=== PATIENT | male | born 1965 | race Caucasian/White ===

== ENCOUNTER 2020-01-28 13:35 | Emergency (ER) | payer OTHER ==
[~2020-01-28] VITALS: Ht 175.3 cm; Wt 150.0 kg
[2020-01-28 13:35] VITALS: BP 132/70
[2020-01-28] MEDS ORDERED: NEOMY/BACITR/POLYMYXIN OINT PACKET. TP ONE (14:15)
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
[2020-01-28] MEDS ORDERED: ACET-704 PO (14:58)
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
== END 2020-01-28 15:00 | disposition home or self-care (01) ==
LOC: ER 13:35
DX: S61.512A Laceration without foreign body of left wrist, initial encounter (principal); S51.812A Laceration without foreign body of left forearm, initial encounter; S60.222A Contusion of left hand, initial encounter; E11.9 Type 2 diabetes mellitus without complications; E78.00 Pure hypercholesterolemia, unspecified; I10 Essential (primary) hypertension; Z87.442 Personal history of urinary calculi; V89.2XXA Person injured in unspecified motor-vehicle accident, traffic, initial encounter; Y93.I9 Activity, other involving external motion; Y92.481 Parking lot as the place of occurrence of the external cause; Y99.8 Other external cause status
CPT/HCPCS: 73090; 73130; 99284

== ENCOUNTER 2020-02-07 21:19 | Inpatient (IN) | payer OTHER, BC ==
[~2020-02-07] VITALS: Ht 177.8 cm; Wt 157.1 kg
[~2020-02-07 21:19] MED LIST changes: -ALLO300T PO; -AMLO10TA8 PO; -HYDR-2145 PO; -HYDR-2868 PO; -INSU100C SQ; -INSU100I13 SQ; -LOSA100T14 PO; -METF500T16 PO; -METO50TA29 PO; -POTA10TA5 PO; -PRAV40TA2 PO; -SITA100T PO
[2020-02-07] MEDS ORDERED: IV NORMAL SALINE 1,000ML 1,000 ML IV ONE (21:30)
--- NOTE | 2020-02-07 21:56 | PHYS DOC ---
Past History Past Medical History: Diabetes, High Cholesterol, Hypertension, Kidney Stones Past Surgical History: Other Additional Past Surgical Histo: FINGER AMUPTATION OF THE LEFT HAND Smoking: Non-smoker Alcohol Use: Rarely Drug Use: None General Adult EDM: Chief Complaint: CELLULITIS HPI: HPI: 54-year-old male presents at the direction of his primary care physician, Dr. Portillo. Patient has left lower leg cellulitis. He has been treated with doxycycline for a week, but it is not getting better. The patient states that the redness has expanded a bit. If he walks around very much his leg gets quite swollen. He had an ultrasound done earlier today or yesterday that ruled out DVT. He has a history of diabetes. He is basically coming here for admission and IV antibiotics due to failed outpatient therapy. Patient has not had a fever. He has had sepsis due to cellulitis in the past. Review of Systems: Review of Systems: Constitutional: Denies fever or chills Eyes: Denies change in visual acuity HENT: Denies nasal congestion or sore throat Respiratory: Denies cough or shortness of breath Cardiovascular: Denies chest pain or edema GI: Denies abdominal pain, nausea, vomiting, bloody stools or diarrhea : Denies dysuria Musculoskeletal: Denies back pain or joint pain Integument: Cellulitis and hematoma left lower leg Neurologic: Denies headache, focal weakness or sensory changes Endocrine: Denies polyuria or polydipsia Lymphatic: Denies swollen glands Psychiatric: Denies depression or anxiety Heart Score: Risk Factors: Risk Factors: DM, Current or recent (<one month) smoker, HTN, HLP, family history of CAD, obesity. Risk Scores: Score 0 - 3: 2.5% MACE over next 6 weeks - Discharge Home Score 4 - 6: 20.3% MACE over next 6 weeks - Admit for Clinical Observation Score 7 - 10: 72.7% MACE over next 6 weeks - Early Invasive Strategies Current Medications: Current Meds: Current Medications Medications (Trade) Dose Ordered Sig/Vivian Start Time Stop Time Status Last Admin Dose Admin Sodium Chloride 1,000 ml @ 1,000 mls/hr 1X ONCE 02/07/20 21:30 02/07/20 22:29 Allergies: Allergies: Allergies Coded Allergies Type Severity Reaction Last Updated Verified No Known Drug Allergies 01/28/20 No Physical Exam: PE: Constitutional: Well developed, morbidly obese, well nourished, no acute distress, non-toxic appearance. [] HENT: Normocephalic, atraumatic, bilateral external ears normal, oropharynx moist, no oral exudates, nose normal. [] Eyes: PERRLA, EOMI, conjunctiva normal, no discharge. [] Neck: Normal range of motion, no tenderness, supple, no stridor. [] Cardiovascular:Heart rate regular rhythm, no murmur [] Lungs & Thorax: Bilateral breath sounds clear to auscultation [] Abdomen: Bowel sounds normal, soft, no tenderness, no masses, no pulsatile masses. [] Skin: Warm, erythematous area of the left lower leg with a 2 cm superficial hematoma. [] Back: No tenderness, no CVA tenderness. [] Extremities: No tenderness, no cyanosis, no clubbing, ROM intact, no edema. [] Neurologic: Alert and oriented X 3, normal motor function, normal sensory function, no focal deficits noted. [] Psychologic: Affect normal, judgement normal, mood normal. [] Current Patient Data: Vital Signs: Vital Signs Date Time Temp Pulse Resp B/P (MAP) Pulse Ox O2 Delivery O2 Flow Rate FiO2 02/07/20 21:20 98.7 87 20 159/77 (104) 97 Room Air EKG: EKG: [] Radiology/Procedures: Radiology/Procedures: [] Course & Med Decision Making: Course & Med Decision Making Pertinent Labs and Imaging studies reviewed. (See chart for details) The patient's labs are unremarkable except for a lactic acid of 2.9. We have given a liter of normal saline. His leg is consistent with cellulitis. I will start him on vancomycin and admit him to the hospital. I spoke with Dr. Michaels and he has accepted the patient for admission. [] Dragon Disclaimer: Dragon Disclaimer: This electronic medical record was generated, in whole or in part, using a voice recognition dictation system. Departure Departure: Impression: Primary Impression: Cellulitis of left lower leg Disposition: ADMITTED INPATIENT Admitting Physician: Manfred Michaels Condition: STABLE Referrals: OMARI PORTILLO MD (PCP) Justification of Admission: Justification of Admission: Justification of Admission Dx: N/A Cellulitis: Cellulitis EDWIN LEVY DO Feb 07, 2020 21:56
[2020-02-07 22:17] LABS: BASO % 1 % (0-3); EOS # 0.2 x10^3/uL (0.0-0.7); EOS % 3 % (0-3); HEMATOCRIT 43.7 % (39.0-53.0); HEMOGLOBIN 14.8 g/dL (13.0-17.5); LYMPH # 1.5 x10^3/uL (1.0-4.8); LYMPH % 17 % (24-48); MEAN CORPUSCULAR HEMOGLOBIN 28 pg (25-35); MEAN CORPUSCULAR HGB CONC 34 g/dL (31-37); MEAN CORPUSCULAR VOLUME 84 fL (79-100); MONO # 0.6 x10^3/uL (0.0-1.1); MONO % 7 % (0-9); NEUT # 6.3 x10^3uL (1.8-7.7); NEUT % 73 % (31-73); PLATELET COUNT 222 x10^3/uL (140-400); WHITE BLOOD COUNT 8.6 x10^3/uL (4.0-11.0)
[2020-02-07 22:28] LABS: CALCIUM 9.7 mg/dL (8.5-10.1); CREATININE 1.6 mg/dL (0.7-1.3); GFR 45.1; POTASSIUM 3.7 mmol/L (3.5-5.1)
[2020-02-07 22:34] LABS: ALBUMIN 3.7 g/dL (3.4-5.0); ALBUMIN/GLOBULIN RATIO 0.9 (1.0-1.7); TOTAL BILIRUBIN 0.3 mg/dL (0.2-1.0); TOTAL PROTEIN 7.9 g/dL (6.4-8.2)
[2020-02-07] MEDS ORDERED: ONDANSETRON PF 4 MG/2 ML VIAL. IVP PRN (22:45)
[2020-02-07] MEDS ORDERED: ACETAMINOPHEN 325 MG TABLET PO PRN (22:45)
[2020-02-07] MEDS ORDERED: VANCOMYCIN 2 GM in IV NORMAL SALINE 500ML 500 ML IV ONE (22:45)
[2020-02-07] MEDS ORDERED: MORPHINE SULFATE 2 MG/ML DISP.SYRIN. IVP PRN (22:45)
[2020-02-07 23:32] VITALS: BP 159/83
[2020-02-08] MEDS ORDERED: METF500T16 PO (00:54)
[2020-02-08] MEDS ORDERED: AMLO10TA8 PO (00:54)
[2020-02-08] MEDS ORDERED: INSU100I13 SQ ×2 (00:54)
[2020-02-08] MEDS ORDERED: METO50TA29 PO (00:54)
[2020-02-08] MEDS ORDERED: LOSA100T14 PO (00:54)
[2020-02-08] MEDS ORDERED: SITA100T PO (00:54)
[2020-02-08] MEDS ORDERED: HYDR-2868 PO (00:54)
[2020-02-08] MEDS ORDERED: ALLO300T PO (00:54)
[2020-02-08] MEDS ORDERED: PRAV40TA2 PO (00:54)
[2020-02-08] MEDS ORDERED: POTA10TA5 PO (00:54)
[2020-02-08] MEDS ORDERED: HYDR-2145 PO (00:54)
[2020-02-08] MEDS ORDERED: INSU100C SQ (00:54)
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
[2020-02-08 06:02] VITALS: BP 148/92
[2020-02-08] MEDS ORDERED: NORMAL SALINE IV SCH (08:45)
[2020-02-08] MEDS ORDERED: VANCOMYCIN IV SCH (08:45)
[2020-02-08] MEDS: VANCOMYCIN 1.5 GM in IV NORMAL SALINE 500ML 500 ML IV SCH ×2 (08:59→21:04)
[2020-02-08] MEDS ORDERED: POTASSIUM CHLORIDE 10 MEQ TABLET.ER. PO PRN (09:00)
[2020-02-08] MEDS: metFORMIN 500 MG TABLET PO SCH ×2 (09:00→21:05)
[2020-02-08] MEDS ORDERED: INSULIN LISPRO 300 UNITS/3 ML VIAL. SQ SCH (09:00)
[2020-02-08] MEDS ORDERED: INSULIN GLARGINE SYRINGE. SQ SCH (09:00)
[2020-02-08] MEDS: LINAGLIPTIN 5 MG TABLET PO SCH (09:00)
[2020-02-08 09:28] VITALS: BP 151/79
--- NOTE | 2020-02-08 09:28 | HP ---
ADMIT DATE: ADMISSION HISTORY AND PHYSICAL ATTENDING PHYSICIAN: Dr. Jhaveri. CHIEF COMPLAINT: Left leg swelling. HISTORY OF PRESENT ILLNESS: The patient is a 54-year-old gentleman, diabetic, who has an infection in his left mattson. There is a zone of eschar and necrosis. He bumped his leg. He works as a builder. He has been on oral doxycycline without any improvement. There is associated swelling, erythema and infection extending up to his knee. He was admitted then for cellulitis of the leg, most likely Staphylococcus refractory to the outpatient care. PAST MEDICAL HISTORY: Significant for type 2 diabetes. He has essential hypertension. He also has obesity and degenerative arthritis and hyperlipidemia. There is also history of uric acid stones. He is on allopurinol. He has chronic kidney disease in addition. PAST SURGICAL HISTORY: He has had multiple urologic procedures for extraction of stones. 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 He has insulin resistance, requiring high doses of insulin and oral hypoglycemics. ALLERGIES: He has no known drug allergies. CURRENT MEDICINES: Include allopurinol 300 mg daily; amlodipine, hydralazine and hydrochlorothiazide daily; 50 units of Lantus at the morning and 80 units at bedtime; regular insulin 40 units b.i.d.; losartan; metformin; metoprolol; potassium; pravastatin and Januvia. SOCIAL HISTORY: He is a nonsmoker, nondrinker. FAMILY HISTORY: Father is alive at age 80 in fairly good health. Mom has some arthritis. 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 He is on his feet quite a bit. REVIEW OF SYSTEMS: Significant for the swelling of the legs. He has been drinking quite a bit of water to counteract the effect of multiple kidney stones. No recent fevers, chills, travel, shortness of breath, dyspnea. All other systems reviewed and turned to be negative. PHYSICAL EXAMINATION: GENERAL: When I saw him, this is a pleasant, alert gentleman. INITIAL VITAL SIGNS: Showed a blood pressure of 148/92 mmHg, temperature was 98.1 degrees Fahrenheit, pulse 74 and regular, oxygen saturation 97% on room air. HEENT: Head is without trauma. Pupils are reactive. Sclerae nonicteric. Oropharynx is clear. NECK: Supple, no bruits identified. LUNGS: Otherwise clear. CARDIOVASCULAR: Showed regular heart tones. No gallops, no murmurs. Peripheral pulses are palpable and full. ABDOMEN: Obese, protuberant. No organomegaly. Bowel sounds are hypoactive. EXTREMITIES: Showed cellulitis involving the anterior mattson of the left foot. There is a central zone of eschar from trauma. The cellulitis extends all the way up to his knee below the patella. There is 2+ edema. NEUROLOGIC: Focally intact. Speech is fluent. No focal deficits. PERTINENT LABORATORY STUDIES: His hemoglobin is maintained at 14.8 g/dL with a white count of 8600. Electrolytes are within normal range. Creatinine is 1.6 mg percent. Lactic acid is adequate. Nonfasting blood sugar 136 mg/dL. ASSESSMENT: 1. This 54-year-old gentleman has cellulitis of the left lower leg, refractory to outpatient care. 2. Most likely staphylococcal infection. 3. Type 2 diabetes mellitus with insulin resistance. 4. Morbid obesity. 5. Hypertension. 6. History of uric acid kidney stones. PLAN: 1. Admit to the inpatient unit. 2. Vancomycin has been ordered and the dose will be adjusted accordingly based on his creatinine and trough levels. 3. Diabetic diet as tolerated. 4. Continue home meds. ANALIA JHAVERI MD DR: ROBINA/simone JOB#: [id number] / [id number] OMARI Alex MD
[2020-02-08 14:32] VITALS: BP 151/78
[2020-02-08 21:04] VITALS: BP 144/89
[2020-02-08] MEDS: LOSARTAN 50 MG TABLET. PO SCH (21:05)
[2020-02-08] MEDS: ATORVASTATIN CALCIUM 10 MG TABLET. PO SCH (21:05)
[2020-02-08] MEDS: LACTOBACILLUS RHAMNOSUS GG 1 CAPSULE. PO SCH (21:05)
[2020-02-08] MEDS: METOPROLOL SUCC 24HR ER 50 MG TAB.ER.24H. PO SCH (21:06)
[2020-02-08] MEDS: ALLOPURINOL 300 MG TABLET. PO SCH (21:06)
[2020-02-08] MEDS: amLODIPine BESYLATE 10 MG TABLET PO SCH (21:06)
[2020-02-08] MEDS: INSULIN LISPRO 300 UNITS/3 ML VIAL. SQ SCH (21:12)
[2020-02-08] MEDS: INSULIN GLARGINE SYRINGE. SQ SCH (21:12)
[2020-02-08 23:55] VITALS: BP 138/78
--- NOTE | 2020-02-09 02:39 | NUR ---
PT stated his IV was "burning" on previous administration of vanco. IV flushed and noted no problems. Vanco started at regular infusion rate this pm. PT noted after half infusion the same "burning" sensation. Vanco decreased from 250/hr to 225/hr. PT noted relief of pain.
[2020-02-09 05:57] VITALS: BP 165/94
[2020-02-09] MEDS: LINAGLIPTIN 5 MG TABLET PO SCH (08:14)
[2020-02-09] MEDS: VANCOMYCIN 1.5 GM in IV NORMAL SALINE 500ML 500 ML IV SCH ×2 (08:15→21:17)
[2020-02-09] MEDS: LACTOBACILLUS RHAMNOSUS GG 1 CAPSULE. PO SCH ×2 (08:15→21:17)
[2020-02-09] MEDS: metFORMIN 500 MG TABLET PO SCH ×2 (08:15→21:17)
[2020-02-09] MEDS: INSULIN LISPRO 300 UNITS/3 ML VIAL. SQ SCH ×2 (08:22→21:16)
[2020-02-09] MEDS: INSULIN GLARGINE SYRINGE. SQ SCH ×2 (08:23→21:11)
--- NOTE | 2020-02-09 08:43 | PN ---
DATE: 02/09/2020 ATTENDING PHYSICIAN: Dr. Jhaveri. SUBJECTIVE: No new complaints. Swelling in his feet is down. He denies any pain, nausea or dyspnea. He has a CPAP for sleep apnea intact. OBJECTIVE FINDINGS: VITAL SIGNS: His blood sugar this morning is 150 mg/dL, blood pressure 138/78 mmHg, pulse is 70 and regular, temperature 97.2 degrees Fahrenheit, oxygen saturation 98% on room air. HEENT: Head is without trauma. Pupils are reactive. Sclerae are nonicteric. Oropharynx clear. NECK: Supple. LUNGS: Clear. CARDIOVASCULAR: Showed distant heart tones. No gallops. Peripheral pulses are palpable and full. ABDOMEN: Obese, protuberant. No organomegaly. Bowel sounds are normoactive. EXTREMITIES: I examined the left lower extremity. The redness and erythema is fading and dissipating. We stephanie a line of demarcation and the erythema is receding. The swelling is down in a controlled environment and limitation of fluid. The central zone of eschar is dissipating and parts of the skin have sloughed off. Distal pulses are intact distally. There are no new areas of erythema and redness of the existing wound is much less. NEUROLOGIC: Focally intact. SKIN: Warm and dry. PERTINENT LABORATORY DATA: Reviewed. His creatinine yesterday was 1.6 mg/dL. We will recheck it tomorrow with a vancomycin trough. ASSESSMENT: 1. Cellulitis, left lower extremity. 2. Type 2 diabetes with insulin resistance. 3. Morbid obesity. 4. Staphylococcal infection, improved with current regimen of vancomycin. 5. Essential hypertension. 6. History of uric acid, kidney stones. PLAN: 1. Continue vancomycin as ordered. 2. Vancomycin trough before tomorrow morning's dose. 3. Hydrochlorothiazide on hold. 4. Followup can be. 5. Diabetic diet as tolerated. ANALIA JHAVERI MD DR: ROBINA/simone JOB#: [id number] / [id number] OMARI Alex MD
[2020-02-09 11:00] VITALS: BP 140/84
[2020-02-09 15:59] VITALS: BP 150/84
[2020-02-09 19:17] VITALS: BP 163/70
[2020-02-09] MEDS: ATORVASTATIN CALCIUM 10 MG TABLET. PO SCH (21:17)
[2020-02-09] MEDS: ALLOPURINOL 300 MG TABLET. PO SCH (21:17)
[2020-02-09] MEDS: amLODIPine BESYLATE 10 MG TABLET PO SCH (21:17)
[2020-02-09] MEDS: METOPROLOL SUCC 24HR ER 50 MG TAB.ER.24H. PO SCH (21:17)
[2020-02-09] MEDS: LOSARTAN 50 MG TABLET. PO SCH (21:18)
[2020-02-09 21:56] VITALS: BP 175/94
[2020-02-10 06:05] VITALS: BP 140/84
[2020-02-10 06:47] LABS: CALCIUM 8.8 mg/dL (8.5-10.1); CREATININE 1.2 mg/dL (0.7-1.3); GFR 62.9; POTASSIUM 3.9 mmol/L (3.5-5.1)
[2020-02-10 06:52] LABS: VANC TR 14.3 mcg/mL (10.0-20.0)
[2020-02-10] MEDS: INSULIN GLARGINE SYRINGE. SQ SCH ×2 (07:43→09:00)
[2020-02-10] MEDS: INSULIN LISPRO 300 UNITS/3 ML VIAL. SQ SCH ×2 (07:43→09:00)
[2020-02-10] MEDS: VANCOMYCIN 1.5 GM in IV NORMAL SALINE 500ML 500 ML IV SCH (08:48)
[2020-02-10] MEDS: LACTOBACILLUS RHAMNOSUS GG 1 CAPSULE. PO SCH (08:49)
[2020-02-10] MEDS: metFORMIN 500 MG TABLET PO SCH (08:49)
[2020-02-10] MEDS: LINAGLIPTIN 5 MG TABLET PO SCH (08:49)
--- NOTE | 2020-02-10 09:36 | DS ---
DATE OF DISCHARGE: 02/10/2020 ATTENDING PHYSICIAN: Dr. Jhaveri. FINAL DISCHARGE DIAGNOSES: 1. Cellulitis of the left lower extremity, Staphylococcus infection. 2. Type 2 diabetes mellitus, with insulin resistance. 3. Morbid obesity. 4. Essential hypertension. 5. History of uric acid kidney stones. HISTORY AND PHYSICAL: The patient is a pleasant 54-year-old gentleman, fairly active. He injured his left mattson. The skin broke, he developed redness, erythema, most likelihood a Staphylococcus infection. He was treated with oral antibiotics as an outpatient, which was refractory. He was admitted for further inpatient care and intravenous antibiotics. PHYSICAL EXAMINATION: Please see my dictated note. PERTINENT LABORATORY AND X-RAY STUDIES: On this admission, the patient's hemoglobin was 14.8 g/dL with white count of 8600. Chemistry panel showed stable electrolytes normal. Sodium and potassium 139 and 3.9 mEq respectively. Creatinine is 1.2 mg/dL, nonfasting blood sugar 105. Transaminases on admission were within normal range. COURSE IN THE HOSPITAL: The patient was admitted. We started empiric vancomycin. He received a total of 5 doses with marked improvement of his swelling and erythema. We limited his fluids. We monitored his serum creatinine level. He received 1.5 grams each dose. There was a significant improvement in the erythema and redness dissipated and he had a small bump around the initial wound on the third hospital day. He wanted to go home. I felt this is reasonable. We will use a combination of trimethoprim __ 1 b.i.d. for 10 more days, doxycycline 100 mg p.o. b.i.d. for 10 more days and with the contingency plan that if symptoms get worse, he can come back always for further vancomycin. His other home meds are unchanged and they included the following: He will continue his insulin regimen of Lantus and the regular as prescribed, allopurinol 300 mg daily, amlodipine 10 mg daily, hydrochlorothiazide 25 mg daily, losartan 100 mg daily, metformin 1000 mg b.i.d., metoprolol daily, potassium supplementation, pravastatin and Januvia dose unchanged. He will call his primary care physician is Dr. Pal next week for followup and updating him on his progress. The patient was then discharged from our hospital in stable condition with explicit instructions and followup care. ANALIA JHAVERI MD DR: ROBINA/simoen JOB#: [id number] / [id number] OMARI Alex MD
[2020-02-10 11:00] VITALS: BP 169/76
== END 2020-02-10 11:33 | disposition home or self-care (01) | DRG 603 ==
LOC: ER 21:19 → 1 SOUTH 22:40
PROVIDERS: ADMIT Hospitalist; ATTEND Hospitalist
DX: L03.116 Cellulitis of left lower limb (principal); Z68.42 Body mass index [BMI] 45.0-49.9, adult; B95.8 Unspecified staphylococcus as the cause of diseases classified elsewhere; E11.22 Type 2 diabetes mellitus with diabetic chronic kidney disease; E66.01 Morbid (severe) obesity due to excess calories; E78.00 Pure hypercholesterolemia, unspecified; E78.5 Hyperlipidemia, unspecified; I12.9 Hypertensive chronic kidney disease with stage 1 through stage 4 chronic kidney disease, or unspecified chronic kidney disease; N18.9 Chronic kidney disease, unspecified; Z87.442 Personal history of urinary calculi; E66.9 Obesity, unspecified; M19.90 Unspecified osteoarthritis, unspecified site
CPT/HCPCS: 36415; 80048; 80053; 80202; 82947; 83605; 85025; 87040; J1815; J3370; J7040; J7030

== ENCOUNTER → 2020-02-07 | Outpatient (CLI) | payer OTHER, BC ==
[2020-01-28 13:35] VITALS: BP 132/70
[~2020-02-07] MED LIST: ACET-704 PO; ALLO300T PO; AMLO10TA8 PO; HYDR-2145 PO; HYDR-2868 PO; INSU100C SQ; INSU100I13 SQ; LOSA100T14 PO; METF500T16 PO; METO50TA29 PO; POTA10TA5 PO; PRAV40TA2 PO; SITA100T PO
--- NOTE | 2020-02-07 15:02 | RAD ---
Left lower extremity venous doppler ultrasound History: Left leg pain Comparison: None Findings: Multiple grayscale, color, and duplex spectral analysis sonographic images were acquired of the left lower extremity veins to evaluate for the presence of DVT. There is normal phasicity. Normal compression, color-flow, and augmentation is demonstrated from the left common femoral to the popliteal veins. There is normal color flow of the proximal greater saphenous and profunda femoris veins. Calf veins are not well visualized on this exam due to patient's body habitus as well as due to soft tissue swelling. Impression: 1. There is no evidence of deep venous thrombosis from the left common femoral to the popliteal veins. Calf veins are poorly seen on this exam. Electronically signed by: Fortunato Damian MD (02/07/2020 2:59 PM) [facility]
--- NOTE | 2020-02-07 15:03 | RAD ---
EXT NON VASC LEFT History: Lump of the left anterior calf, wound Comparison: None. Findings: Multiple sonographic images of the left calf region at site of concern are submitted. There concern, there is a 3.9 x 3.3 x 1.5 cm focus of heterogeneous echogenicity with diffuse internal echoes present. There is adjacent soft tissue edema. There are some vessels scattered at the periphery, no significant internal vascularity. Impression: 1. There is a nonspecific focus of heterogeneous echogenicity at site of concern which may be phlegmon, does not have sonographic features suggestive of easily drainable fluid. Electronically signed by: Fortunato Damian MD (02/07/2020 3:00 PM) [facility]
== END ==
LOC: US 14:07
PROVIDERS: ATTEND Family Medicine
DX: M79.605 Pain in left leg (principal); R22.42 Localized swelling, mass and lump, left lower limb
CPT/HCPCS: 76881; 93971